=== PATIENT | male | born 1945 | race Caucasian/White ===

== ENCOUNTER → 2019-04-05 11:21 | Outpatient (CLI) | payer MEDICARE, BC ==
[2013-12-20 09:43] VITALS: BMI 25.5
[~2019-04-05 11:21] MED LIST: ACETAMINOPHEN500 M1 PO; BAYER CHEWABLE81 MG PO; GLUCOPHAGE500 MG PO; HEMOCYTE PLUS C1 CAP PO; HYDROCODONE-APA1 TAB PO; ISOSORBIDE DINI30 MG PO; PACERONE200 MG PO; PLAVIX75 MG PO
== END | disposition home or self-care (01) ==
LOC: D.US 11:21
PROVIDERS: ATTEND Internal Medicine Cardiovascular Disease
DX: I25.10 Atherosclerotic heart disease of native coronary artery without angina pectoris (principal); I35.0 Nonrheumatic aortic (valve) stenosis; I65.23 Occlusion and stenosis of bilateral carotid arteries

== ENCOUNTER → 2019-09-20 09:57 | Outpatient (CLI) | payer MEDICARE, BC ==
[2013-12-20 09:43] VITALS: BMI 25.5
== END | disposition home or self-care (01) ==
LOC: D.HCCECHO 09:30
PROVIDERS: ATTEND Internal Medicine Cardiovascular Disease
DX: I25.10 Atherosclerotic heart disease of native coronary artery without angina pectoris (principal)

== ENCOUNTER 2020-10-14 22:04 | Emergency (ER) | payer MEDICARE, BC ==
[~2020-10-14] VITALS: Ht 172.7 cm; Wt 61.2 kg
[2020-10-14 22:15] VITALS: BP 193/85; Ht 172.7 cm; Wt 61.2 kg
[2020-10-15] MEDS ORDERED: AUGMENTIN 875-11 TAB PO (00:10)
[2020-10-15] MEDS ORDERED: HYDROCODON-ACE1 EAC7 PO (00:10)
== END 2020-10-15 00:25 | disposition home or self-care (01) ==
LOC: D.ER 22:04
DX: S62.522B Displaced fracture of distal phalanx of left thumb, initial encounter for open fracture (principal); X58.XXXA Exposure to other specified factors, initial encounter; E11.40 Type 2 diabetes mellitus with diabetic neuropathy, unspecified; Z79.84 Long term (current) use of oral hypoglycemic drugs; S61.012A Laceration without foreign body of left thumb without damage to nail, initial encounter